=== PATIENT | male | born 1960 | race Caucasian/White ===

== ENCOUNTER 2017-02-08 16:02 | Emergency (ER) | payer OTHER ==
[~2017-02-08] VITALS: Ht 175.3 cm; Wt 113.4 kg
[2017-02-08 16:25] VITALS: BP 131/79
[2017-02-08] MEDS ORDERED: TRAZODONE HCL50 M1 PO (17:08)
[2017-02-08] MEDS ORDERED: TAMSULOSIN HCL0.4 M1 PO (17:08)
[2017-02-08] MEDS ORDERED: ATORVASTATIN CA40 M1 PO (17:08)
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
[2017-02-08] MEDS ORDERED: VICODIN 5-3001 EACH PO (17:13)
[2017-02-08] MEDS ORDERED: DOXYCYCLINE HY100 M2 PO (17:13)
== END 2017-02-08 17:21 ==
LOC: ERH 16:02
DX: L03.116 Cellulitis of left lower limb (principal)